=== PATIENT | male | born 1955 | race Caucasian/White ===

== ENCOUNTER 2019-02-05 13:15 | Emergency (ER) | payer BC ==
[~2019-02-05] VITALS: Ht 180.3 cm; Wt 77.1 kg
[2019-02-05 13:51] LABS: ABSOLUTE EOSINOPHILS 0.1 thou/uL (0.0-0.7); ABSOLUTE LYMPHOCYTES 1.7 thou/uL (0.8-5.3); ABSOLUTE MONOCYTES 0.6 thou/uL (0.0-1.2); ABSOLUTE NEUTROPHILS 4.8 thou/uL (1.6-8.1); BASOPHILS 0.5 %; EOSINOPHILS 1.4 %; HEMATOCRIT 40.5 % (42.0-52.0); HEMOGLOBIN 13.9 gm/dL (14.0-18.0); MCH 31.3 pg (26.0-34.0); MCHC 34.3 g/dL (28.0-37.0); MCV 91.2 fL (80.0-100.0); MONOCYTES 7.9 %; MPV 6.6 fl. (7.2-11.1); NUCLEATED RBCS 0 /100WBC; PLATELET COUNT* 320 thou/uL (150-400); POLYS 67.2 %; RBC 4.44 mil/uL (4.50-6.00); RDW-CV 12.9 % (10.5-14.5); WBC 7.2 thou/uL (4.0-11.0)
[2019-02-05 14:03] LABS: ANION GAP 7 mmol/L (7-16); BUN 17 mg/dL (7-18); CALCIUM 8.7 mg/dL (8.5-10.1); CHLORIDE 104 mmol/L (98-107); CO2 29 mmol/L (21-32); CREATININE 0.8 mg/dL (0.6-1.3); GLUCOSE 99 mg/dL (70-99); POTASSIUM 4.2 mmol/L (3.5-5.1); SODIUM 140 mmol/L (136-145)
[2019-02-05 14:13] LABS: ALBUMIN 3.8 g/dL (3.4-5.0); ALKALINE PHOSPHATASE 63 U/L (46-116); LIPASE 89 U/L (73-393); NT-PRO BRAIN NAT PEPTIDE 81 pg/mL (<300); SGOT 19 U/L (15-37); SGPT 24 U/L (30-65); TOTAL BILIRUBIN 0.4 mg/dL (<0.1-1.0); TOTAL PROTEIN 7.2 g/dL (6.4-8.2); TROPONIN-I LEVEL <0.06 ng/mL (<0.06)
--- NOTE | 2019-02-05 14:42 | EKG ---
[place] [address] ELECTROCARDIOGRAM REPORT Name: CHARLIE GILLILAND Room: [facility]#: [id number] Admission: 02/05/19 Attend Phys: Discharge: Date of : 59 Report #: [id number] THIS REPORT FOR: //name// [facility] ED Test Date: 2019-02-05 Test Time: 13:26:59 Pat Name: CHARLIE GILLILAND Department: Room: Gender: M [employer]: EV : 1955 Requested By: Ramon Maxwell Order Number: [id number] MD: Jim Mayfield Measurements Intervals [place] Rate: 88 P: 58 VT: 164 QRS: 14 QRSD: 92 T: 21 QT: 360 QTc: 436 Interpretive Statements Sinus rhythm No previous ECG available for comparison Electronically Signed On 02-05-2019 14:42:45 CDT by Jim Mayfield [email or web address] <ELECTRONICALLY SIGNED> By: Jim Mayfield MD, [facility] 02/05/19 1442 [id number] Jim Mayfield MD, FACC /EPI
[2019-02-05] MEDS ORDERED: METOPROLOL SUCC25 M1 PO (14:58)
[2019-02-05 15:13] VITALS: BP 113/76
== END 2019-02-05 15:14 | disposition home or self-care (01) ==
LOC: M.ERS 13:15
PROVIDERS: Emergency Medicine Emergency Medical Services
DX: I47.1 Supraventricular tachycardia (principal); Z96.652 Presence of left artificial knee joint